=== PATIENT | male | born 1970 | race Caucasian/White ===

== ENCOUNTER 2016-07-22 06:16 | Emergency (ER) | payer SELFPAY ==
--- NOTE | 2016-07-22 20:08 | ER ---
ADMIT: 07/22/2016 RM/LOC: ER [facility] MR#: [id number] [address] [address] NITHYA RODRIGUEZ [address] [place] [address] Emergency Room Report SEX: M AGE: 46 : 1970 DATE: 07/22/2016 The patient is a 46-year-old male with previous STD complains of urethral discharge, dysuria, and bladder fullness for the past 2-3 days. No flank pain, nausea, or vomiting. Exam remarkable for clear discharge with no sores or lymphadenopathy. Urine PCR for chlamydia GC pending. Doxycycline 200 mg in department, 100 mg b.i.d. x14 days. Rocephin 250 mg IM. Follow up Dr. Guadalupe as needed. Geo Joshua MD/ hollyl JOB #: [id number] CC: Geo Joshua MD, Attending Physician Joanne Guadalupe MD, Family Physician Joanne Guadalupe MD
== END 2016-07-22 07:22 | disposition home or self-care (01) ==
LOC: ER 06:16
DX: A64 Unspecified sexually transmitted disease (principal); Z88.5 Allergy status to narcotic agent